=== PATIENT | female | born 1950 | race Caucasian/White ===

== ENCOUNTER 2019-07-17 11:19 | Outpatient (REF) | payer MEDICARE, SELFPAY ==
[2019-07-17 21:29] LABS: TSH 2.24 uIU/mL (0.36-3.74)
== END 2019-07-17 11:39 ==
LOC: NCHCN 11:19
PROVIDERS: PCP Family Medicine; Visit Provider Registered Nurse
DX: E03.9 Hypothyroidism, unspecified (principal)
CPT/HCPCS: 84443